=== PATIENT | male | born 1935 | race Caucasian/White ===

== ENCOUNTER 2017-09-04 17:33 | Observation (INO) | payer OTHER ==
[~2017-09-04] VITALS: Ht 175.3 cm; Wt 111.5 kg
[~2017-09-04 17:33] MED LIST: ADVIL PM1 TABLET PO; ADVIL200 MG PO; ATORVASTATIN CA40 MG PO; COLCRYS0.6 MG PO; CRESTOR40 MG PO; CYCLOBENZAPRINE5 M1 PO; Colchicine,Colcrys PO; DOXYCYCLINE HY100 MG PO; HYDROCODONE-AP1 EA10 PO; INDOMETHACIN25 MG PO; LEVOTHROID,SY0.05 MG PO; LEVOTHYROXINE50 MCG PO; LITE COAT ASPI325 M1 PO; METOPROLOL TART50 MG PO; MOTRIN600 MG PO; PERCOCET 5/31 TABLET PO; TRAMADOL HCL50 MG PO; TYLENOL ARTHRI650 MG PO; VITAMIN D31000 UNIT PO; VITAMIN D5000 UNIT PO; XALATAN2.5 ML BOTH EYES; ZESTRIL,PRINIVI40 MG PO
[2017-09-04 20:00] LABS: HEMATOCRIT 43.6 % (38.0-50.0); HEMOGLOBIN 14.5 G/DL (12.5-16.6); MCH 29.5 PG (29.0-34.0); MCHC 33.3 G/DL (30.0-36.0); MCV 88.8 FL (86-99); PLATELET COUNT 212 K/uL (156-360); RBC DIS.WIDTH-CV 14.3 % (11.8-14.6); RED BLOOD COUNT 4.91 M/uL (4.00-5.50); WHITE BLOOD COUNT 10.8 K/uL (4.1-10.2)
[2017-09-04 20:08] LABS: CHLORIDE 107 mEq/L (99-109); POTASSIUM 4.1 mEq/L (3.7-5.4); SODIUM 143 mEq/L (136-147)
[2017-09-04 20:09] LABS: GLUCOSE 122 mg/dL (70-99)
[2017-09-04 20:13] LABS: CREATININE 0.9 mg/dL (0.6-1.3); GFR ESTIMATE (CALCULATED) > 59 mL/min/ (58.99-99999)
[2017-09-04 20:14] LABS: UREA NITROGEN (BUN) 21 mg/dL (9-23)
[2017-09-04] MEDS ORDERED: PREDNISONE10 MG PO (21:27)
[2017-09-04] MEDS ORDERED: ULTRACET1 TABLET PO (21:28)
[2017-09-04 23:43] VITALS: BP 146/74
[2017-09-05 04:05] VITALS: BP 130/73
[2017-09-05 06:07] LABS: HEMATOCRIT 40.6 % (38.0-50.0); MCH 28.8 PG (29.0-34.0); PLATELET COUNT 197 K/uL (156-360); RBC DIS.WIDTH-CV 14.2 % (11.8-14.6); RBC DIS.WIDTH-SD 46.9 % (39-53); RED BLOOD COUNT 4.51 M/uL (4.00-5.50)
[2017-09-05 06:50] LABS: CHLORIDE 105 MEQ/L (99-109); GFR ESTIMATE (CALCULATED) > 59 mL/min/ (58.99-99999); GLUCOSE 93 mg/dL (70-99); POTASSIUM 3.8 MEQ/L (3.7-5.4); SODIUM 144 MEQ/L (136-147); UREA NITROGEN (BUN) 24 mg/dL (9-23)
[2017-09-05 07:51] VITALS: BP 147/81
[2017-09-05 11:24] VITALS: BP 130/74
[2017-09-05] MEDS ORDERED: TORADOL10 MG PO (11:35)
== END 2017-09-05 12:19 | disposition home or self-care (01) ==
LOC: EME 17:33 → EDOF 22:10 → 5WEST 22:10 → ENRESERV 22:17 → 5WEST 23:27
PROVIDERS: Physician Assistant; Physician Assistant Medical
DX: G89.11 Acute pain due to trauma (principal); S22.41XA Multiple fractures of ribs, right side, initial encounter for closed fracture; I25.10 Atherosclerotic heart disease of native coronary artery without angina pectoris; Z95.5 Presence of coronary angioplasty implant and graft; I10 Essential (primary) hypertension; E78.5 Hyperlipidemia, unspecified; E03.9 Hypothyroidism, unspecified; M35.3 Polymyalgia rheumatica; Z87.891 Personal history of nicotine dependence; Z82.49 Family history of ischemic heart disease and other diseases of the circulatory system; Z82.0 Family history of epilepsy and other diseases of the nervous system; Z79.82 Long term (current) use of aspirin; W18.39XA Other fall on same level, initial encounter; Y93.89 Activity, other specified; Y92.009 Unspecified place in unspecified non-institutional (private) residence as the place of occurrence of the external cause
CPT/HCPCS: 71046; 80048; 85027; 99281; 99284; G0378; J1885; J7512